=== PATIENT | female | born 1970 | race Caucasian/White ===

== ENCOUNTER 2024-03-28 13:52 | Outpatient (CLI) | payer BC | END 2024-03-28 13:53 | disposition home or self-care (01) | LOC: SCSRAD 13:52 | PROVIDERS: ATTEND Family Medicine | DX: M79.671 Pain in right foot (principal) ==

== ENCOUNTER 2024-05-18 07:43 | Outpatient (CLI) | payer BC | END 2024-05-18 07:44 | disposition home or self-care (01) | LOC: BICMAMMO 07:43 | PROVIDERS: ATTEND Family Medicine | DX: N64.89 Other specified disorders of breast (principal) | CPT/HCPCS: G0279 ==